=== PATIENT | male | born 1955 | race Caucasian/White ===

== ENCOUNTER 2020-07-18 14:59 | Emergency (ER) | payer OTHER ==
--- NOTE | 2020-07-18 16:05 | ER Document Report ---
ED Medical Screen (RME) - General Chief Complaint: Leg Swelling Stated Complaint: LEFT LEG PAIN Time Seen by Provider: 07/18/20 15:58 Mode of Arrival: Ambulatory Information source: Patient Notes: 65-year-old male presented to ED for occlusion of the left femoral artery according to Dr. Garcia. He states he needs him to be sent to another hospital as he has an occluded femoral artery according to Doppler and he cannot treat him at this hospital. I have greeted and performed a rapid initial assessment of this patient. A comprehensive ED assessment and evaluation of the patient, analysis of test results and completion of medical decision making process will be conducted by an additional ED providers. Physical Exam - Vital signs Vitals: Temp Pulse Resp BP Pulse Ox 98.3 F 91 18 151/77 H 97 07/18/20 15:07 07/18/20 15:07 07/18/20 15:07 07/18/20 15:07 07/18/20 15:07 Course - Vital Signs Vital signs: Temp Pulse Resp BP Pulse Ox 98.3 F 91 18 151/77 H 97 07/18/20 15:07 07/18/20 15:07 07/18/20 15:07 07/18/20 15:07 07/18/20 15:07
[2020-07-18] MEDS ORDERED: HEPARIN SODIUM,PORCINE/D5W 25,000 UNIT/250 ML RTUINJ IV PRN (16:41)
[2020-07-18] MEDS ORDERED: HEPARIN SOD (PORCINE) 1,000 UNIT/ML 10 ML VIAL IV ONE (16:41)
[2020-07-18 16:48] LABS: ABSOLUTE BASOPHILS # (AUTO) 0.1 10^3/uL (0.0-0.2); ABSOLUTE EOSINOPHILS # (AUTO) 0.2 10^3/uL (0.0-0.6); ABSOLUTE LYMPHOCYTES (AUTO) 1.2 10^3/uL (0.5-4.7); ABSOLUTE MONOCYTES (AUTO) 1.2 10^3/uL (0.1-1.4); ABSOLUTE NEUT (AUTO) 7.9 10^3/uL (1.7-8.2); BASOPHILS % (AUTO) 0.6 % (0-2); EOSINOPHILS % (AUTO) 1.6 % (0-6); HEMATOCRIT 45.3 % (37.9-51.0); HEMOGLOBIN 15.7 g/dL (13.5-17.0); LYMPHOCYTES % (AUTO) 11.7 % (13-45); MEAN CORPUSCULAR HEMOGLOBIN 34.5 pg (27.0-33.4); MEAN CORPUSCULAR HGB CONC 34.6 g/dL (32.0-36.0); MEAN CORPUSCULAR VOLUME 100 fl (80-97); MONOCYTES % (AUTO) 11.5 % (3-13); PLATELET COUNT 234 10^3/uL (150-450); RED BLOOD COUNT 4.55 10^6/uL (4.35-5.55); RED CELL DISTRIBUTION WIDTH 14.6 % (11.5-14.0); SEGMENTED NEUTROPHILS % (AUTO) 74.6 % (42-78); TOTAL CELLS COUNTED % (AUTO) 100 %; WHITE BLOOD COUNT 10.5 10^3/uL (4.0-10.5)
--- NOTE | 2020-07-18 16:49 | ER Document Report ---
ED General - General Chief Complaint: Leg Pain Stated Complaint: LEFT LEG PAIN Time Seen by Provider: 07/18/20 15:58 Primary Care Provider: CHUCK DUBOSE MD [ACTIVE STAFF] - Follow up as needed Mode of Arrival: Ambulatory Notes: 65 year old smoker with COPD and depression - sees Dr. Snow as PCP - has had increasing left leg pain for about a week. Sharp pain in ankle originally is worse with ambulation and better with rest. No injury. No history of vascular disease that he is aware of. No fever and no covid exposure. - HPI Onset: Last week Onset/Duration: Gradual Severity: Moderate Exacerbated by: Walking Relieved by: Remaining still Similar symptoms previously: No Recently seen / treated by doctor: Yes - Related Data Allergies/Adverse Reactions: No Known Allergies Allergy (Unverified 07/18/20 16:27) Past Medical History - General Information source: Patient - Social History Smoking Status: Unknown if Ever Smoked Family History: Reviewed & Not Pertinent Patient has homicidal ideation: No Pulmonary Medical History: Reports: Hx COPD Review of Systems - Review of Systems Constitutional: No symptoms reported EENT: No symptoms reported Cardiovascular: No symptoms reported Respiratory: No symptoms reported Gastrointestinal: No symptoms reported Genitourinary: No symptoms reported Male Genitourinary: No symptoms reported Musculoskeletal: See HPI Skin: No symptoms reported Hematologic/Lymphatic: No symptoms reported Neurological/Psychological: No symptoms reported Physical Exam - Vital signs Vitals: Temp Pulse Resp BP Pulse Ox 98.3 F 91 18 151/77 H 97 07/18/20 15:07 07/18/20 15:07 07/18/20 15:07 07/18/20 15:07 07/18/20 15:07 Interpretation: Normal - General General appearance: Appears well, Alert - HEENT Head: Normocephalic, Atraumatic Eyes: Normal Pupils: PERRL - Respiratory Respiratory status: No respiratory distress Chest status: Nontender Breath sounds: Normal Chest palpation: Normal - Cardiovascular Rhythm: Regular Heart sounds: Normal auscultation Murmur: No - Abdominal Inspection: Normal Distension: No distension Bowel sounds: Normal Tenderness: Nontender Organomegaly: No organomegaly - Back Back: Normal, Nontender - Extremities General upper extremity: Normal inspection, Nontender, Normal color, Normal ROM, Normal temperature General lower extremity: Normal inspection, Tender - Left lower leg is a bit cooler than right. DP pulse intact. PT pulse can not be palpated., Normal color, Normal ROM, Normal temperature, Normal weight bearing. No: Nontender, Debbie's sign - Neurological Neuro grossly intact: Yes Cognition: Normal Orientation: AAOx4 [place] Coma Scale Eye Opening: Spontaneous [place] Coma Scale Verbal: Oriented [place] Coma Scale Motor: Obeys Commands Santosh Coma Scale Total: 15 Speech: Normal Motor strength normal: LUE, RUE, LLE, RLE Sensory: Normal - Psychological Associated symptoms: Normal affect, Normal mood - Skin Skin Temperature: Warm Skin Moisture: Dry Skin Color: Normal Course - Re-evaluation Re-evalutation: 07/18/20 16:50 MDM 65 year old male - smoker - is here with left leg pain. SFA occluded and mobile thrombus in distal femoral artery. Heparin bolused and gtt started. I have called the transfer center - 16:48 - at [facility] and am awaiting a call back. 07/18/20 17:24 I have discussed the pt with Dr. Manzo - Vascular at [facility] - and he tells me since the pt does have pulses distally this can be handled expediantlly but not necessarily emergently. He will see the pt Tuesday morning in his office at [facility] in [place]. He should take aspirin daily and we will provide pain medicine and instructions. 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 Manzo in follow up Dale 11/2/20 at 9:00 at his office [address] [place] [address]. Please return here for chest pain, shortness of breath, discoloration or increased pain of the left foot or other problems or concerns. Take the pain medicines as needed for pain. Take 1 single aspirin daily -81 mg baby aspirin. Prescriptions: Hydrocodone/Acetaminophen [[place] 5-325 mg Tablet] 1 tab PO TID 4 Days #12 tablet Forms: Smoking Cessation Education, Elevated Blood Pressure Referrals: CHUCK DUBOSE MD [ACTIVE STAFF] - Follow up as needed
[2020-07-18 16:56] LABS: INTERNATIONAL RATION (INR) 0.92; PARTIAL THROMBOPLASTIN TIME 28.9 SEC (23.5-35.8); PROTHROMBIN TIME 12.6 SEC (11.4-15.4)
[2020-07-18 17:09] LABS: ALBUMIN 3.9 g/dL (3.5-5.0); ALKALINE PHOSPHATASE 109 U/L (38-126); ANION GAP 9 (5-19); ASPARTATE AMINO TRANSFERASE 21 U/L (17-59); BILIRUBIN,TOTAL 2.1 mg/dL (0.2-1.3); BLOOD UREA NITROGEN 10 mg/dL (7-20); CALCIUM 9.2 mg/dL (8.4-10.2); CARBON DIOXIDE 26 mmol/L (22-30); CHLORIDE 104 mmol/L (98-107); GLUCOSE 104 mg/dL (75-110); POTASSIUM 3.4 mmol/L (3.6-5.0); TOTAL PROTEIN 6.8 g/dL (6.3-8.2)
[2020-07-18] MEDS ORDERED: HYDROCODONE/ACETAMINOPHEN 5-325 MG (6 TAB/ER DISP) PO PRN (17:31)
[2020-07-18] MEDS ORDERED: ASPIRIN 81 MG TABLET, CHEWABLE PO ONE (17:33)
[2020-07-18 17:47] VITALS: BP 163/87
== END 2020-07-18 17:47 | disposition home or self-care (01) ==
LOC: ER 14:59
DX: I74.3 Embolism and thrombosis of arteries of the lower extremities (principal); M79.605 Pain in left leg; J44.9 Chronic obstructive pulmonary disease, unspecified; F17.200 Nicotine dependence, unspecified, uncomplicated
CPT/HCPCS: 99284; 96374; 96375; 36415; 85025; 85610; 85730; 80053; J1644 ×2

== ENCOUNTER → 2020-07-18 | Outpatient (CLI) | payer OTHER ==
--- NOTE | 2020-07-18 13:43 | RADIOLOGY REPORT (SQ) ---
EXAM DESCRIPTION: ARTERIAL LOWER EXTREM UNILAT IMAGES COMPLETED DATE/TIME: 07/18/2020 1:26 pm REASON FOR STUDY: PVD I73.9 PERIPHERAL VASCULAR DISEASE, UNSPECIFIED COMPARISON: None. TECHNIQUE: Dynamic and static fritz scale and color images acquired of the left lower extremity arter ies. Additional selected spectral images recorded. ABIs recorded. LIMITATIONS: None. FINDINGS: RIGHT LEG: LEFT LEG: INFLOW ARTERIES: Normal, no obstruction evident. FEMORAL ARTERIES:The deep femoral and common femoral arteries are patent.. The SFA is occluded near i ts origin. It is reconstituted distally via collaterals. There is mobile thrombus present in the di stal femoral artery. POPLITEAL ARTERY:Biphasic waveforms. Normal, no velocity elevation to suggest focal stenosis. Normal color Doppler evaluation. No aneurysm. PATENT TIBIOPERONEAL TRUNK AND 3 VESSEL RUNOFF: Biphasic waveforms TBI: Not performed. OTHER: No other significant finding. IMPRESSION: The SFA is occluded near its origin. The vessel as reconstituted distally via collatera l vessels. Distal runoff is biphasic. This may represent a combination of acute and chronic disease . On grayscale images there is thrombus identified in the distal femoral artery. Vascular consultat ion is recommended. COMMENT: [facility] NORMAL: Greater than 1.0 MINIMAL DISEASE: 0.9 to 1.0 CLAUDICATION: 0.5 to 0.9 SEVERE ARTERIAL DISEASE: Less than 0.5 TECHNICAL DOCUMENTATION: JOB ID: [id number] 2010 [employer]- All Rights Reserved Reading location - IP/workstation name: [email or web address]
--- NOTE | 2020-07-19 17:15 | ER Document Report ---
Doctor's Note Notes: 07/19/20 17:14 Trena from [facility] called to advise she has a hardcopy for Aurora tablets #[address] Solis. Neither myself nor Dr. Braxton Marcos are willing to send a note through electronic release for Aurora under our VIANEY's. Trena will advise the patient of this.
== END ==
LOC: RAD 11:33
PROVIDERS: ATTEND Internal Medicine
DX: I74.3 Embolism and thrombosis of arteries of the lower extremities (principal)
CPT/HCPCS: 93926